=== PATIENT | male | born 1935 | race Caucasian/White ===

== ENCOUNTER 2017-02-28 15:53 | Inpatient (IN) | payer MEDICARE, OTHER, MEDICAID ==
[2017-02-28 16:48] LABS: ADD MAN DIFF? NO
[2017-02-28 16:52] LABS: BASOPHILS % 0.2 % (0.0-2.0); EOSINOPHILS # 0.1 10^3/ul (0.0-0.5); EOSINOPHILS % 2.7 % (0.0-7.0); HEMATOCRIT 36.4 % (42.0-52.0); HEMOGLOBIN 12.8 g/dl (14.0-18.0); LYMPHOCYTES # 1.6 10^3/ul (0.8-2.9); LYMPHOCYTES % 32.6 % (15.0-51.0); MEAN CORPUSCULAR HEMOGLOBIN 33.2 pg (29.0-33.0); MEAN CORPUSCULAR HGB CONC 35.2 g/dl (32.0-37.0); MEAN CORPUSCULAR VOLUME 94.3 fl (82.0-101.0); MEAN PLATELET VOLUME 9.7 fl (7.4-10.4); MONOCYTE # 0.3 10^3/ul (0.3-0.9); MONOCYTES % 5.9 % (0.0-11.0); NEUTROPHIL # 2.8 10^3/ul (1.6-7.5); NEUTROPHILS % 58.4 % (39.0-77.0); PLATELET COUNT 134 10^3/UL (140-415); POSITIVE DIFF @See below; RED BLOOD COUNT 3.86 10^6/ul (4.70-6.10); RED CELL DISTRIBUTION WIDTH 12.7 % (11.5-14.5)
[2017-02-28 16:52] LABS: WHITE BLOOD COUNT 4.8 10^3/ul (4.8-10.8)
[2017-02-28 17:14] LABS: ANION GAP 13 (8-16); BLOOD UREA NITROGEN 23 mg/dl (7-20); CALCIUM 8.9 mg/dl (8.4-10.2); CARBON DIOXIDE 27 mmol/L (21-31); CHLORIDE 105 mmol/L (97-110); GLUCOSE 106 mg/dl (70-220); POTASSIUM 4.1 mmol/L (3.5-5.1); SODIUM 141 mmol/L (135-144)
[2017-02-28] MEDS: NITROGLYCERIN 2% 1 GM OINT PKT TD (17:17)
[2017-02-28] MEDS: ASPIRIN 81 MG TAB PO (17:17)
[2017-02-28 17:26] LABS: TROPONIN-I 0.027 ng/ml (0.00-0.12)
[2017-02-28] MEDS ORDERED: ONDANSETRON 4 MG INJ IV (19:00)
[2017-02-28] MEDS ORDERED: LORAZEPAM 2 MG INJ IV (20:30)
[2017-02-28] MEDS ORDERED: hydrALAzine 20 MG INJ IV (20:30)
[2017-02-28] MEDS ORDERED: MAGNESIUM HYDROXIDE 30ML CUP PO (20:30)
[2017-02-28] MEDS ORDERED: morphine 2 MG INJ IV (20:30)
[2017-02-28] MEDS ORDERED: DOCUSATE SODIUM 100 MG CAP PO (20:30)
[2017-02-28] MEDS ORDERED: NACL 0.9% 3 ML SYG IV (20:30)
[2017-02-28] MEDS ORDERED: ALBUTEROL/IPRATROPIUM (NEB) 3 ML AMP HHN (20:30)
[2017-02-28] MEDS ORDERED: NA PHOSPHATE/BIPHOS 133 ML ENEMA PR (20:30)
[2017-02-28] MEDS ORDERED: SIMVASTATIN 80 MG PO (21:00)
[2017-02-28 21:17] LABS: INR 1.72; PROTIME 20.5 Sec (11.9-14.9); PT RATIO 1.6
[2017-02-28 21:18] LABS: PARTIAL THROMBOPLASTIN TIME 38.8 Sec (25.0-35.0)
[2017-02-28] MEDS: TERAZOSIN 1 MG CAP PO (21:18)
[2017-02-28] MEDS: TAMSULOSIN (SR) 0.4 MG CAP PO (21:18)
[2017-02-28] MEDS: RANOLAZINE (SR) 500 MG TAB PO (21:18)
[2017-02-28] MEDS: FISH OIL 1,000 MG CAP PO (21:18)
[2017-02-28] MEDS: morphine 2 MG INJ IV (21:22)
[2017-02-28] MEDS: ONDANSETRON 4 MG INJ IV (21:22)
[2017-02-28 21:36] LABS: FREE T4 (FREE THYROXINE) 0.82 ng/dl (0.85-1.93)
[2017-02-28 23:13] LABS: CREATINE KINASE 128 IU/L (23-200)
[2017-02-28 23:25] LABS: CK INDEX 0.7; TROPONIN-I 0.024 ng/ml (0.00-0.12)
[2017-02-28 23:41] LABS: CK-MB 0.92 ng/ml (0.0-2.4)
[2017-03-01 06:42] LABS: ADD MAN DIFF? NO
[2017-03-01 06:50] LABS: WHITE BLOOD COUNT 4.9 10^3/ul (4.8-10.8)
[2017-03-01 06:50] LABS: BASOPHILS % 0.2 % (0.0-2.0); EOSINOPHILS # 0.2 10^3/ul (0.0-0.5); EOSINOPHILS % 3.5 % (0.0-7.0); HEMATOCRIT 37.4 % (42.0-52.0); HEMOGLOBIN 13.1 g/dl (14.0-18.0); LYMPHOCYTES # 1.8 10^3/ul (0.8-2.9); LYMPHOCYTES % 37.6 % (15.0-51.0); MEAN CORPUSCULAR HEMOGLOBIN 32.8 pg (29.0-33.0); MEAN CORPUSCULAR VOLUME 93.7 fl (82.0-101.0); MEAN PLATELET VOLUME 9.8 fl (7.4-10.4); MONOCYTE # 0.4 10^3/ul (0.3-0.9); MONOCYTES % 7.4 % (0.0-11.0); NEUTROPHIL # 2.5 10^3/ul (1.6-7.5); NEUTROPHILS % 51.1 % (39.0-77.0); PLATELET COUNT 132 10^3/UL (140-415); RED BLOOD COUNT 3.99 10^6/ul (4.70-6.10); RED CELL DISTRIBUTION WIDTH 12.5 % (11.5-14.5)
[2017-03-01 07:24] LABS: ANION GAP 14 (8-16); BLOOD UREA NITROGEN 20 mg/dl (7-20); CALCIUM 8.8 mg/dl (8.4-10.2); CARBON DIOXIDE 25 mmol/L (21-31); CHLORIDE 106 mmol/L (97-110); CREATININE 1.35 mg/dl (0.61-1.24); GLUCOSE 86 mg/dl (70-220); MAGNESIUM 1.9 mg/dl (1.7-2.5); PHOSPHORUS 3.4 mg/dl (2.5-4.9); POTASSIUM 4.2 mmol/L (3.5-5.1); SODIUM 141 mmol/L (135-144)
[2017-03-01 07:27] LABS: CHOLESTEROL 76 mg/dl (100-200)
[2017-03-01 07:27] LABS: CHOL/HDL RATIO 2.9 RATIO; HDL CHOLESTEROL 26 mg/dl (31-75); LDL CHOLESTEROL,CALCULATED 27 mg/dl; TRIGLYCERIDES 115 mg/dl (0-149)
[2017-03-01 07:29] LABS: CREATINE KINASE 117 IU/L (23-200)
[2017-03-01 07:33] LABS: CK INDEX 0.8; TROPONIN-I 0.024 ng/ml (0.00-0.12)
[2017-03-01 07:34] LABS: CK-MB 0.93 ng/ml (0.0-2.4)
[2017-03-01] MEDS: NITROGLYCERIN (SL) 0.4 MG TAB SL (08:11)
[2017-03-01] MEDS ORDERED: ASPIRIN (EC) 81 MG TAB PO (09:00)
[2017-03-01 09:04] LABS: INR 1.68; PROTIME 20.1 Sec (11.9-14.9); PT RATIO 1.6
[2017-03-01] MEDS: TERAZOSIN 1 MG CAP PO ×2 (09:21→20:45)
[2017-03-01] MEDS: RANOLAZINE (SR) 500 MG TAB PO ×2 (09:21→20:43)
[2017-03-01] MEDS: FINASTERIDE 5 MG TAB PO (09:21)
[2017-03-01] MEDS: RANITIDINE 150 MG TAB PO (09:21)
[2017-03-01] MEDS: TAMSULOSIN (SR) 0.4 MG CAP PO ×2 (09:21→20:45)
[2017-03-01] MEDS: FISH OIL 1,000 MG CAP PO ×2 (09:21→20:45)
[2017-03-01] MEDS: ASPIRIN (EC) 325 MG TAB PO (09:22)
[2017-03-01] MEDS: AMLODIPINE 2.5 MG TAB PO (09:23)
[2017-03-01] MEDS: ACETAMINOPHEN 325 MG TAB PO (09:38)
[2017-03-01 09:55] LABS: HEMOGLOBIN A1C 5.2 % (0-5.9)
[2017-03-01 11:05] LABS: ADD UMIC NO; UR ASCORBIC ACID NEGATIVE (NEGATIVE); UR BILIRUBIN (Dip) NEGATIVE (NEGATIVE); UR BLOOD (Dip) NEGATIVE (NEGATIVE); UR CLARITY CLEAR (CLEAR); UR COLOR YELLOW (YELLOW); UR GLUCOSE (Dip) NEGATIVE (NEGATIVE); UR KETONES (Dip) NEGATIVE (NEGATIVE); UR LEUKOCYTE ESTERASE (Dip) NEGATIVE Leu/ul (NEGATIVE); UR NITRITE (Dip) NEGATIVE (NEGATIVE); UR SPECIFIC GRAVITY (Dip) 1.012 (1.003-1.030); UR TOTAL PROTEIN (Dip) NEGATIVE (NEGATIVE); UR UROBILINOGEN (Dip) NEGATIVE (NEGATIVE)
[2017-03-01 11:48] LABS: SODIUM,URINE RANDOM 186 mmol/L (30-90)
[2017-03-01 11:48] LABS: CREATININE,URINE RANDOM 58.24 mg/dl (20-370)
[2017-03-01] MEDS ORDERED: NITROGLYCERIN (SL) 0.4 MG TAB SL (12:00)
[2017-03-01] MEDS: ISOSORBIDE DINITRATE 10 MG TAB PO ×2 (14:26→20:46)
[2017-03-01] MEDS ORDERED: WARFARIN 2 MG TAB GTB (17:00)
[2017-03-01] MEDS: WARFARIN 2 MG TAB PO (18:07)
[2017-03-01] MEDS: HYDROCODONE/APAP (5/325) TAB PO (19:16)
[2017-03-01] MEDS: ATORVASTATIN 80 MG TAB PO (20:44)
[2017-03-02] MEDS: FINASTERIDE 5 MG TAB PO (09:37)
[2017-03-02] MEDS: RANITIDINE 150 MG TAB PO (09:37)
[2017-03-02] MEDS: RANOLAZINE (SR) 500 MG TAB PO ×2 (09:37→21:01)
[2017-03-02] MEDS: ASPIRIN (EC) 325 MG TAB PO (09:37)
[2017-03-02] MEDS: FISH OIL 1,000 MG CAP PO ×2 (09:37→21:01)
[2017-03-02] MEDS: TAMSULOSIN (SR) 0.4 MG CAP PO ×2 (09:38→21:01)
[2017-03-02] MEDS: TERAZOSIN 1 MG CAP PO ×2 (09:40→21:02)
[2017-03-02] MEDS: ISOSORBIDE DINITRATE 10 MG TAB PO ×3 (09:40→21:02)
[2017-03-02] MEDS: AMLODIPINE 2.5 MG TAB PO (09:40)
[2017-03-02 10:18] LABS: ADD MAN DIFF? NO
[2017-03-02 10:46] LABS: WHITE BLOOD COUNT 4.9 10^3/ul (4.8-10.8)
[2017-03-02 10:47] LABS: BASOPHILS % 0.2 % (0.0-2.0); EOSINOPHILS # 0.1 10^3/ul (0.0-0.5); EOSINOPHILS % 2.8 % (0.0-7.0); HEMATOCRIT 39.9 % (42.0-52.0); HEMOGLOBIN 13.9 g/dl (14.0-18.0); LYMPHOCYTES # 1.5 10^3/ul (0.8-2.9); LYMPHOCYTES % 31.2 % (15.0-51.0); MEAN CORPUSCULAR HEMOGLOBIN 32.6 pg (29.0-33.0); MEAN CORPUSCULAR HGB CONC 34.8 g/dl (32.0-37.0); MEAN CORPUSCULAR VOLUME 93.7 fl (82.0-101.0); MEAN PLATELET VOLUME 9.8 fl (7.4-10.4); MONOCYTE # 0.4 10^3/ul (0.3-0.9); MONOCYTES % 7.1 % (0.0-11.0); NEUTROPHIL # 2.9 10^3/ul (1.6-7.5); NEUTROPHILS % 58.5 % (39.0-77.0); PLATELET COUNT 134 10^3/UL (140-415); POSITIVE DIFF @See below; RED BLOOD COUNT 4.26 10^6/ul (4.70-6.10); RED CELL DISTRIBUTION WIDTH 12.2 % (11.5-14.5)
[2017-03-02 10:49] LABS: INR 1.54; PROTIME 18.8 Sec (11.9-14.9); PT RATIO 1.5
[2017-03-02 11:00] LABS: ANION GAP 14 (8-16); BLOOD UREA NITROGEN 24 mg/dl (7-20); CALCIUM 8.5 mg/dl (8.4-10.2); CARBON DIOXIDE 25 mmol/L (21-31); CHLORIDE 104 mmol/L (97-110); CREATININE 1.43 mg/dl (0.61-1.24); GLUCOSE 92 mg/dl (70-220); POTASSIUM 4.3 mmol/L (3.5-5.1); SODIUM 139 mmol/L (135-144)
[2017-03-02] MEDS: REGADENOSON 0.4 MG/5 ML SYG (11:40)
[2017-03-02 14:26] LABS: CREATININE, RANDOM URINE 69 mg/dL (20-370); MICROALBUMIN 0.3 mg/dL; MICROALBUMIN/CREATININE RATIO 4 (<30)
[2017-03-02] MEDS: WARFARIN 3 MG TAB PO (17:59)
[2017-03-02] MEDS: ACETAMINOPHEN 325 MG TAB PO (18:44)
[2017-03-02] MEDS: ATORVASTATIN 80 MG TAB PO (21:01)
[2017-03-03 07:57] LABS: ADD MAN DIFF? NO
[2017-03-03 08:09] LABS: EOSINOPHILS # 0.2 10^3/ul (0.0-0.5); EOSINOPHILS % 3.6 % (0.0-7.0); HEMATOCRIT 39.7 % (42.0-52.0); LYMPHOCYTES # 1.8 10^3/ul (0.8-2.9); LYMPHOCYTES % 35.9 % (15.0-51.0); MEAN CORPUSCULAR HEMOGLOBIN 32.9 pg (29.0-33.0); MEAN CORPUSCULAR HGB CONC 35.3 g/dl (32.0-37.0); MEAN CORPUSCULAR VOLUME 93.2 fl (82.0-101.0); MEAN PLATELET VOLUME 9.9 fl (7.4-10.4); MONOCYTE # 0.4 10^3/ul (0.3-0.9); NEUTROPHIL # 2.6 10^3/ul (1.6-7.5); NEUTROPHILS % 52.5 % (39.0-77.0); PLATELET COUNT 128 10^3/UL (140-415); RED BLOOD COUNT 4.26 10^6/ul (4.70-6.10); RED CELL DISTRIBUTION WIDTH 12.4 % (11.5-14.5)
[2017-03-03 08:23] LABS: INR 1.56; PT RATIO 1.5
[2017-03-03 08:30] LABS: ANION GAP 16 (8-16); BLOOD UREA NITROGEN 27 mg/dl (7-20); CALCIUM 8.6 mg/dl (8.4-10.2); CARBON DIOXIDE 23 mmol/L (21-31); CHLORIDE 105 mmol/L (97-110); CREATININE 1.44 mg/dl (0.61-1.24); GLUCOSE 83 mg/dl (70-220); POTASSIUM 4.3 mmol/L (3.5-5.1); SODIUM 140 mmol/L (135-144)
[2017-03-03] MEDS: TAMSULOSIN (SR) 0.4 MG CAP PO (09:12)
[2017-03-03] MEDS: ISOSORBIDE DINITRATE 10 MG TAB PO ×2 (09:12→12:20)
[2017-03-03] MEDS: FINASTERIDE 5 MG TAB PO (09:13)
[2017-03-03] MEDS: FISH OIL 1,000 MG CAP PO (09:13)
[2017-03-03] MEDS: TERAZOSIN 1 MG CAP PO (09:13)
[2017-03-03] MEDS: RANITIDINE 150 MG TAB PO (09:13)
[2017-03-03] MEDS: RANOLAZINE (SR) 500 MG TAB PO (09:13)
[2017-03-03] MEDS: ASPIRIN (EC) 325 MG TAB PO (09:14)
[2017-03-03] MEDS: AMLODIPINE 2.5 MG TAB PO (09:14)
[2017-03-03] MEDS: ACETAMINOPHEN 325 MG TAB PO (11:07)
[2017-03-03] MEDS: WARFARIN 3 MG TAB PO (17:28)
[2017-03-04] MEDS ORDERED: FUROSEMIDE 20 MG TAB PO (06:00)
== END 2017-03-03 17:38 | disposition home or self-care (01) | DRG 313 ==
LOC: MS4 17:59 → E/R 15:53
DX: R07.9 Chest pain, unspecified (principal); I25.5 Ischemic cardiomyopathy; N17.9 Acute kidney failure, unspecified; D68.9 Coagulation defect, unspecified; D64.9 Anemia, unspecified; I13.0 Hypertensive heart and chronic kidney disease with heart failure and stage 1 through stage 4 chronic kidney disease, or unspecified chronic kidney disease; N18.3 Chronic kidney disease, stage 3 (moderate); I50.22 Chronic systolic (congestive) heart failure; Z86.718 Personal history of other venous thrombosis and embolism; Z86.73 Personal history of transient ischemic attack (TIA), and cerebral infarction without residual deficits; Z95.5 Presence of coronary angioplasty implant and graft; Z95.0 Presence of cardiac pacemaker; Z79.01 Long term (current) use of anticoagulants; N40.0 Benign prostatic hyperplasia without lower urinary tract symptoms
CPT/HCPCS: 36415; 71045; 78452; 80048; 80061; 81003; 82043; 82550; 82553; 83036; 83735; 84100; 84155; 84300; 84439; 84443; 84484; 85025; 85610; 85730; 93005; 93017; 93306; 96374; 96375; 97162; 99285-25; G0378

== ENCOUNTER → 2017-09-26 | Outpatient (CLI) | payer MEDICARE, OTHER ==
[~2017-09-26] MED LIST: CEFAZOLIN 1 GM/50 ML (PMX) 50 ML IVPB; DIAZEPAM 5 MG TAB PO; SOD CHLORIDE 0.45% 1,000 ML IV
== END | disposition home or self-care (01) ==
LOC: SDS 06:43 → RAD 06:00
DX: Z95.810 Presence of automatic (implantable) cardiac defibrillator (principal); Z53.8 Procedure and treatment not carried out for other reasons
CPT/HCPCS: 71045

== ENCOUNTER 2017-10-11 09:18 | Observation (INO) | payer MEDICARE, OTHER ==
[2017-10-11] MEDS: DIAZEPAM 5 MG TAB PO (06:00)
[~2017-10-11 09:18] MED LIST changes: +CEFAZOLIN 1 GM INJ; -DIAZEPAM 5 MG TAB PO; -SOD CHLORIDE 0.45% 1,000 ML IV
[2017-10-11 10:24] LABS: ADD MAN DIFF? NO
[2017-10-11 10:27] LABS: WHITE BLOOD COUNT 6.4 10^3/ul (4.8-10.8)
[2017-10-11 10:27] LABS: BASOPHILS % 0.3 % (0.0-2.0); EOSINOPHILS # 0.1 10^3/ul (0.0-0.5); EOSINOPHILS % 1.4 % (0.0-7.0); HEMATOCRIT 38.6 % (42.0-52.0); HEMOGLOBIN 13.8 g/dl (14.0-18.0); LYMPHOCYTES # 1.5 10^3/ul (0.8-2.9); LYMPHOCYTES % 23.1 % (15.0-51.0); MEAN CORPUSCULAR HEMOGLOBIN 33.7 pg (29.0-33.0); MEAN CORPUSCULAR HGB CONC 35.8 g/dl (32.0-37.0); MEAN CORPUSCULAR VOLUME 94.4 fl (82.0-101.0); MEAN PLATELET VOLUME 9.5 fl (7.4-10.4); MONOCYTE # 0.5 10^3/ul (0.3-0.9); MONOCYTES % 7.4 % (0.0-11.0); NEUTROPHIL # 4.3 10^3/ul (1.6-7.5); NEUTROPHILS % 67.3 % (39.0-77.0); PLATELET COUNT 173 10^3/UL (140-415); RED BLOOD COUNT 4.09 10^6/ul (4.70-6.10); RED CELL DISTRIBUTION WIDTH 12.1 % (11.5-14.5)
[2017-10-11] MEDS ORDERED: BUPIVACAINE 0.25% (MPF) 30 ML INJ (10:29)
[2017-10-11 10:45] LABS: ANION GAP 12 (8-16); BLOOD UREA NITROGEN 25 mg/dl (7-20); CALCIUM 9.2 mg/dl (8.4-10.2); CARBON DIOXIDE 23 mmol/L (21-31); CHLORIDE 108 mmol/L (97-110); CHOLESTEROL 182 mg/dl (100-200); CREATININE 1.53 mg/dl (0.61-1.24); GLUCOSE 101 mg/dl (70-220); HDL CHOLESTEROL 26 mg/dl (31-75); LDL CHOLESTEROL,CALCULATED 90 mg/dl; POTASSIUM 4.3 mmol/L (3.5-5.1); SODIUM 139 mmol/L (135-144); TRIGLYCERIDES 331 mg/dl (0-149)
[2017-10-11 10:46] LABS: INR 1.18; PROTIME 15.2 Sec (11.9-14.9); PT RATIO 1.2
[2017-10-11 10:47] LABS: PARTIAL THROMBOPLASTIN TIME 28.7 Sec (25.0-35.0)
[2017-10-11] MEDS ORDERED: MIDAZOLAM 1 MG/ML 2 ML INJ (11:18)
[2017-10-11] MEDS ORDERED: FENTAnyl 50 MCG/ML VIAL (11:18)
[2017-10-11] MEDS ORDERED: FENTAnyl 50 MCG/ML VIAL IV (11:30)
[2017-10-11] MEDS ORDERED: ONDANSETRON 4 MG INJ IV ×2 (11:30→13:30)
[2017-10-11] MEDS ORDERED: HYDROmorphONE 1 MG/5 ML IV SYRINGE IV ×2 (11:30)
[2017-10-11] MEDS ORDERED: PROCHLORPERAZINE 10 MG INJ IV (11:30)
[2017-10-11] MEDS ORDERED: DIPHENHYDRAMINE 50 MG INJ IV (11:30)
[2017-10-11] MEDS ORDERED: MEPERIDINE 25 MG INJ IV (11:30)
[2017-10-11] MEDS: POLYMYXIN/BACITRACIN 1L IRRIG (11:52)
[2017-10-11] MEDS ORDERED: PROPOFOL 20 ML (11:53)
[2017-10-11] MEDS ORDERED: LIDOCAINE 2% (SDV) 5 ML INJ (11:53)
[2017-10-11] MEDS: LIDOCAINE 1% (MPF) 30 ML INJ (12:13)
[2017-10-11] MEDS ORDERED: morphine 2 MG INJ IV ×2 (13:00→13:30)
[2017-10-11] MEDS ORDERED: HYDROCODONE/APAP (5/325) TAB PO ×2 (13:30)
[2017-10-11] MEDS: CEFAZOLIN 1 GM/50 ML (PMX) 50 ML IVPB ×2 (15:54→21:00)
[2017-10-11] MEDS: SOD CHLORIDE 0.45% 1,000 ML IV (15:55)
[2017-10-11] MEDS: WARFARIN 5 MG TAB PO ×2 (16:37→16:39)
[2017-10-11] MEDS ORDERED: WARFARIN 5 MG TAB PO (17:00)
[2017-10-11] MEDS: RANOLAZINE (SR) 500 MG TAB PO (20:41)
[2017-10-11] MEDS: ACETAMINOPHEN 325 MG TAB PO (20:41)
[2017-10-11] MEDS: TAMSULOSIN (SR) 0.4 MG CAP PO (20:42)
[2017-10-11] MEDS ORDERED: FAMOTIDINE 20 MG INJ IV (21:00)
[2017-10-12] MEDS: SOD CHLORIDE 0.45% 1,000 ML IV (06:00)
[2017-10-12] MEDS: CEFAZOLIN 1 GM/50 ML (PMX) 50 ML IVPB ×2 (06:36→14:46)
[2017-10-12 06:47] LABS: ADD MAN DIFF? NO
[2017-10-12 06:53] LABS: BASOPHILS % 0.2 % (0.0-2.0); EOSINOPHILS # 0.1 10^3/ul (0.0-0.5); EOSINOPHILS % 1.8 % (0.0-7.0); HEMATOCRIT 37.4 % (42.0-52.0); HEMOGLOBIN 13.6 g/dl (14.0-18.0); LYMPHOCYTES # 1.4 10^3/ul (0.8-2.9); MEAN CORPUSCULAR HEMOGLOBIN 34.1 pg (29.0-33.0); MEAN CORPUSCULAR HGB CONC 36.4 g/dl (32.0-37.0); MEAN CORPUSCULAR VOLUME 93.7 fl (82.0-101.0); MEAN PLATELET VOLUME 9.4 fl (7.4-10.4); MONOCYTE # 0.5 10^3/ul (0.3-0.9); MONOCYTES % 9.5 % (0.0-11.0); NEUTROPHIL # 3.4 10^3/ul (1.6-7.5); NEUTROPHILS % 63.1 % (39.0-77.0); PLATELET COUNT 150 10^3/UL (140-415); RED BLOOD COUNT 3.99 10^6/ul (4.70-6.10); RED CELL DISTRIBUTION WIDTH 12.2 % (11.5-14.5)
[2017-10-12 06:53] LABS: WHITE BLOOD COUNT 5.5 10^3/ul (4.8-10.8)
[2017-10-12 07:05] LABS: HEMOGLOBIN A1C 5.3 % (0-5.9)
[2017-10-12 07:20] LABS: ALANINE AMINOTRANSFERASE 21 IU/L (13-69); ALBUMIN 3.5 g/dl (3.3-4.9); ALKALINE PHOSPHATASE 36 IU/L (42-121); ANION GAP 10 (8-16); ASPARTATE AMINO TRANSFERASE 20 IU/L (15-46); BILIRUBIN,INDIRECT 0.6 mg/dl (0-1.1); BILIRUBIN,TOTAL 0.6 mg/dl (0.2-1.3); BLOOD UREA NITROGEN 22 mg/dl (7-20); CALCIUM 8.9 mg/dl (8.4-10.2); CARBON DIOXIDE 28 mmol/L (21-31); CHLORIDE 106 mmol/L (97-110); CHOL/HDL RATIO 6.4 RATIO; CHOLESTEROL 161 mg/dl (100-200); CREATININE 1.41 mg/dl (0.61-1.24); GLUCOSE 90 mg/dl (70-220); HDL CHOLESTEROL 25 mg/dl (31-75); LDL CHOLESTEROL,CALCULATED 74 mg/dl; MAGNESIUM 1.9 mg/dl (1.7-2.5); POTASSIUM 4.1 mmol/L (3.5-5.1); SODIUM 140 mmol/L (135-144); TOTAL PROTEIN 6.4 g/dl (6.1-8.1); TRIGLYCERIDES 311 mg/dl (0-149)
[2017-10-12 07:36] LABS: FREE THYROXINE INDEX (Calc) 2.08 ug/ml (0.65-3.89); T3 UPTAKE 34.7 % (23.5-40.5)
[2017-10-12] MEDS: RANOLAZINE (SR) 500 MG TAB PO (08:43)
[2017-10-12] MEDS: ISOSORBIDE MONONITRATE(SR)60 MG TAB PO (08:44)
[2017-10-12] MEDS: AMLODIPINE 2.5 MG TAB PO (08:44)
[2017-10-12] MEDS: ASPIRIN 81 MG TAB PO (08:45)
[2017-10-12] MEDS: TAMSULOSIN (SR) 0.4 MG CAP PO (08:45)
[2017-10-12] MEDS: FINASTERIDE 5 MG TAB PO (08:45)
[2017-10-12] MEDS: RANITIDINE 150 MG TAB PO (08:45)
[2017-10-12] MEDS: WARFARIN 5 MG TAB PO (17:34)
[2017-10-12] MEDS ORDERED: ATORVASTATIN 20 MG TAB PO (21:00)
== END 2017-10-12 18:14 | disposition home or self-care (01) ==
LOC: SDS 09:18 → REC 12:43 → TEL 15:09
DX: Z45.02 Encounter for adjustment and management of automatic implantable cardiac defibrillator (principal); I25.10 Atherosclerotic heart disease of native coronary artery without angina pectoris; I50.9 Heart failure, unspecified; I42.9 Cardiomyopathy, unspecified; I10 Essential (primary) hypertension; I25.2 Old myocardial infarction; E78.5 Hyperlipidemia, unspecified; Z86.718 Personal history of other venous thrombosis and embolism
CPT/HCPCS: 33263; 71045; 80048; 80053; 80061; 83036; 83735; 84100; 84436; 84443; 84479; 85025; 85610; 85730; 88300; 93005; G0378

== ENCOUNTER 2017-10-18 10:16 | Emergency (ER) | payer MEDICARE, OTHER | END 2017-10-18 13:35 | disposition home or self-care (01) | LOC: FTE 10:16 | DX: L29.9 Pruritus, unspecified (principal); Z79.01 Long term (current) use of anticoagulants; Z79.82 Long term (current) use of aspirin; Z98.61 Coronary angioplasty status | CPT/HCPCS: 99282 ==

== ENCOUNTER 2018-10-16 07:01 | Observation (INO) | payer MEDICARE, OTHER ==
[2018-10-16] MEDS: CEFAZOLIN 1 GM/50 ML (PMX) 50 ML IVPB ×2 (06:00→20:34)
[~2018-10-16 07:01] MED LIST changes: -CEFAZOLIN 1 GM INJ; -CEFAZOLIN 1 GM/50 ML (PMX) 50 ML IVPB; +SOD CHLORIDE 0.45% 1,000 ML IV
[2018-10-16] MEDS ORDERED: POLYMYXIN/BACITRACIN 1L IRRIG (07:25)
[2018-10-16] MEDS ORDERED: SOD CHLORIDE 0.9% 500 ML (07:32)
[2018-10-16] MEDS ORDERED: IODIXANOL LOCM 50 ML BTL (07:32)
[2018-10-16] MEDS ORDERED: CEFAZOLIN 1 GM/50 ML (PMX) 50 ML IVPB ×2 (07:32→07:35)
[2018-10-16] MEDS ORDERED: LIDOCAINE 1%/EPI (1:100,000) (MDV) 20 ML (07:32)
[2018-10-16] MEDS ORDERED: BUPIVACAINE 0.5% (SDV) 30 ML INJ (07:32)
[2018-10-16 08:18] LABS: ADD MAN DIFF? NO
[2018-10-16 08:20] LABS: WHITE BLOOD COUNT 5.1 10^3/ul (4.8-10.8)
[2018-10-16 08:20] LABS: BASOPHILS % 0.4 % (0.0-2.0); EOSINOPHILS # 0.2 10^3/ul (0.0-0.5); EOSINOPHILS % 3.5 % (0.0-7.0); HEMATOCRIT 39.6 % (42.0-52.0); HEMOGLOBIN 13.6 g/dl (14.0-18.0); LYMPHOCYTES # 1.5 10^3/ul (0.8-2.9); LYMPHOCYTES % 29.1 % (15.0-51.0); MEAN CORPUSCULAR HEMOGLOBIN 33.5 pg (29.0-33.0); MEAN CORPUSCULAR HGB CONC 34.3 g/dl (32.0-37.0); MEAN CORPUSCULAR VOLUME 97.5 fl (82.0-101.0); MEAN PLATELET VOLUME 9.6 fl (7.4-10.4); MONOCYTE # 0.5 10^3/ul (0.3-0.9); MONOCYTES % 9.4 % (0.0-11.0); NEUTROPHIL # 2.9 10^3/ul (1.6-7.5); PLATELET COUNT 147 10^3/UL (140-415); RED BLOOD COUNT 4.06 10^6/ul (4.70-6.10); RED CELL DISTRIBUTION WIDTH 12.4 % (11.5-14.5)
[2018-10-16] MEDS: DIAZEPAM 5 MG TAB PO (08:32)
[2018-10-16 08:39] LABS: INR 1.27; PT RATIO 1.3
[2018-10-16 08:40] LABS: PARTIAL THROMBOPLASTIN TIME 30.6 Sec (23.0-35.0)
[2018-10-16 08:42] LABS: ALANINE AMINOTRANSFERASE 16 IU/L (13-69); ALBUMIN/GLOBULIN RATIO 1.48; ALKALINE PHOSPHATASE 37 IU/L (42-121); ANION GAP 9 (5-13); ASPARTATE AMINO TRANSFERASE 22 IU/L (15-46); BILIRUBIN,INDIRECT 0.6 mg/dl (0-1.1); BILIRUBIN,TOTAL 0.6 mg/dl (0.2-1.3); BLOOD UREA NITROGEN 20 mg/dl (7-20); CALCIUM 8.6 mg/dl (8.4-10.2); CARBON DIOXIDE 22 mmol/L (21-31); CHLORIDE 108 mmol/L (97-110); CHOLESTEROL 125 mg/dl (100-200); GLUCOSE 100 mg/dl (70-220); HDL CHOLESTEROL 31 mg/dl (31-75); LDL CHOLESTEROL,CALCULATED 54 mg/dl; POTASSIUM 3.9 mmol/L (3.5-5.1); SODIUM 139 mmol/L (135-144); TOTAL PROTEIN 6.7 g/dl (6.1-8.1); TRIGLYCERIDES 201 mg/dl (0-149)
[2018-10-16] MEDS ORDERED: PROPOFOL 20 ML (08:56)
[2018-10-16] MEDS ORDERED: FENTAnyl 50 MCG/ML VIAL (08:56)
[2018-10-16] MEDS ORDERED: MIDAZOLAM 1 MG/ML 2 ML INJ (08:56)
[2018-10-16] MEDS ORDERED: ONDANSETRON 4 MG INJ IV ×2 (10:00→12:30)
[2018-10-16] MEDS ORDERED: hydrALAzine 20 MG INJ IV (10:00)
[2018-10-16] MEDS ORDERED: MIDAZOLAM 1 MG/ML 2 ML INJ IV (10:00)
[2018-10-16] MEDS ORDERED: METOCLOPRAMIDE 10 MG INJ IV (10:00)
[2018-10-16] MEDS ORDERED: EPHEDrine 25 MG/5 ML SYG IV (10:00)
[2018-10-16] MEDS ORDERED: LABETALOL HCL 20MG INJ IV (10:00)
[2018-10-16] MEDS ORDERED: DIPHENHYDRAMINE 50 MG INJ IV (10:00)
[2018-10-16] MEDS ORDERED: MEPERIDINE 25 MG INJ IV (10:00)
[2018-10-16] MEDS ORDERED: FENTAnyl 50 MCG/ML VIAL IV ×3 (10:00)
[2018-10-16] MEDS ORDERED: HYDROCODONE/APAP (5/325) TAB PO ×4 (10:30→12:30)
[2018-10-16] MEDS ORDERED: morphine 2 MG INJ IV (10:30)
[2018-10-16] MEDS ORDERED: ACETAMINOPHEN 325 MG TAB PO (12:30)
[2018-10-16] MEDS ORDERED: NACL 0.9% 3 ML SYG IV (12:30)
[2018-10-16] MEDS: CEPHALEXIN 500 MG CAP PO (17:53)
[2018-10-16] MEDS: ISOSORBIDE MONONITRATE(SR)60 MG TAB PO (20:35)
[2018-10-16] MEDS: RANOLAZINE (SR) 500 MG TAB PO (20:35)
[2018-10-16] MEDS: TAMSULOSIN (SR) 0.4 MG CAP PO (20:36)
[2018-10-17] MEDS: CEPHALEXIN 500 MG CAP PO ×3 (00:12→13:01)
[2018-10-17 05:06] LABS: ADD MAN DIFF? NO
[2018-10-17 05:09] LABS: WHITE BLOOD COUNT 5.7 10^3/ul (4.8-10.8)
[2018-10-17 05:09] LABS: BASOPHILS % 0.2 % (0.0-2.0); EOSINOPHILS # 0.2 10^3/ul (0.0-0.5); EOSINOPHILS % 3.7 % (0.0-7.0); HEMOGLOBIN 13.9 g/dl (14.0-18.0); LYMPHOCYTES # 1.6 10^3/ul (0.8-2.9); LYMPHOCYTES % 27.6 % (15.0-51.0); MEAN CORPUSCULAR HEMOGLOBIN 34.2 pg (29.0-33.0); MEAN CORPUSCULAR HGB CONC 34.8 g/dl (32.0-37.0); MEAN CORPUSCULAR VOLUME 98.3 fl (82.0-101.0); MEAN PLATELET VOLUME 9.7 fl (7.4-10.4); MONOCYTE # 0.5 10^3/ul (0.3-0.9); NEUTROPHIL # 3.4 10^3/ul (1.6-7.5); PLATELET COUNT 155 10^3/UL (140-415); RED BLOOD COUNT 4.07 10^6/ul (4.70-6.10); RED CELL DISTRIBUTION WIDTH 12.4 % (11.5-14.5)
[2018-10-17 05:26] LABS: PROTIME 15.3 Sec (11.9-14.9); PT RATIO 1.2
[2018-10-17 05:32] LABS: ANION GAP 8 (5-13); BLOOD UREA NITROGEN 18 mg/dl (7-20); CALCIUM 8.6 mg/dl (8.4-10.2); CARBON DIOXIDE 23 mmol/L (21-31); CHLORIDE 108 mmol/L (97-110); CREATININE 1.37 mg/dl (0.61-1.24); GLUCOSE 90 mg/dl (70-220); MAGNESIUM 1.9 mg/dl (1.7-2.5); POTASSIUM 3.8 mmol/L (3.5-5.1); SODIUM 139 mmol/L (135-144)
[2018-10-17] MEDS: ASPIRIN 81 MG TAB PO (08:50)
[2018-10-17] MEDS: ISOSORBIDE MONONITRATE(SR)60 MG TAB PO (08:50)
[2018-10-17] MEDS: TAMSULOSIN (SR) 0.4 MG CAP PO (08:50)
[2018-10-17] MEDS: RANITIDINE 150 MG TAB PO (08:50)
[2018-10-17] MEDS: FINASTERIDE 5 MG TAB PO (08:51)
[2018-10-17] MEDS: RANOLAZINE (SR) 500 MG TAB PO (08:51)
[2018-10-17] MEDS: CEFAZOLIN 1 GM/50 ML (PMX) 50 ML IVPB (08:52)
[2018-10-17] MEDS: AMLODIPINE 5 MG TAB PO (08:52)
[2018-10-17] MEDS ORDERED: WARFARIN 5 MG TAB PO (17:00)
[2018-10-18] MEDS ORDERED: ISOSORBIDE MONONITRATE(SR)60 MG TAB PO (09:00)
== END 2018-10-17 14:23 | disposition home or self-care (01) ==
LOC: SDS 07:01 → MS1 12:24 → SDS 10:08 → REC 10:09 → MS1 12:41
DX: T82.128A Displacement of other cardiac electronic device, initial encounter (principal); I10 Essential (primary) hypertension; E78.00 Pure hypercholesterolemia, unspecified; E78.5 Hyperlipidemia, unspecified; I42.9 Cardiomyopathy, unspecified; I25.10 Atherosclerotic heart disease of native coronary artery without angina pectoris; Z95.5 Presence of coronary angioplasty implant and graft; Z86.718 Personal history of other venous thrombosis and embolism; Y83.8 Other surgical procedures as the cause of abnormal reaction of the patient, or of later complication, without mention of misadventure at the time of the procedure
CPT/HCPCS: 33223; 71045; 80048; 80053; 80061; 83735; 85025; 85610; 85730; 93005; 96365; 97162; 97167